=== PATIENT | female | born 1970 | race Caucasian/White ===

== ENCOUNTER 2017-10-16 22:34 | Inpatient (IN) | payer OTHER ==
[~2017-10-16] VITALS: Ht 165.1 cm; Wt 80.5 kg
[~2017-10-16 22:34] MED LIST: DIPROSONE 0.05%15 GM TP; HYDROCHLOROTHIA25 MG PO; RISPERDAL3 MG PO
[2017-10-17 13:41] VITALS: BP 135/77
[2017-10-17 19:13] LABS: HEMATOCRIT 36.6 % (36.0-46.0); MCV 86.5 FL (83-99)
[2017-10-17 21:42] VITALS: BP 109/56
[2017-10-17 22:42] LABS: HEMATOCRIT 31.7 % (36.0-46.0); HEMOGLOBIN 10.6 G/DL (11.9-15.5); MCH 28.4 PG (29.0-34.0); MCHC 33.4 G/DL (30.0-36.0); RBC DIS.WIDTH-CV 14.6 % (11.8-14.6); RBC DIS.WIDTH-SD 45.3 % (39-53); RED BLOOD COUNT 3.73 M/uL (3.80-5.20); WHITE BLOOD COUNT 11.1 K/uL (4.1-10.2)
[2017-10-17 22:53] LABS: CHLORIDE 105 mEq/L (99-109); SODIUM 136 mEq/L (136-147)
[2017-10-17 22:55] LABS: GLUCOSE 187 mg/dL (70-99)
[2017-10-17 22:59] LABS: CREATININE 0.7 mg/dL (0.6-1.3); GFR ESTIMATE (CALCULATED) > 59 mL/min/
[2017-10-17 23:00] LABS: UREA NITROGEN (BUN) 11 mg/dL (9-23)
[2017-10-18 00:07] LABS: PLAT.SUFFICIENCY ADEQUATE; PLATELET CLUMPS PRESENT - PLATELET COUNT APPEARS ADQ.; PLATELET COUNT 277 K/uL (156-360)
[2017-10-18 00:12] VITALS: BP 111/68
[2017-10-18 03:31] VITALS: BP 108/65
[2017-10-18 05:43] LABS: HEMATOCRIT 29.9 % (36.0-46.0); HEMOGLOBIN 9.7 G/DL (11.9-15.5); MCH 27.7 PG (29.0-34.0); MCHC 32.4 G/DL (30.0-36.0); MCV 85.4 FL (83-99); PLATELET COUNT 292 K/uL (156-360); RBC DIS.WIDTH-CV 15.1 % (11.8-14.6); RBC DIS.WIDTH-SD 46.5 % (39-53); WHITE BLOOD COUNT 8.1 K/uL (4.1-10.2)
[2017-10-18 06:08] LABS: CHLORIDE 104 MEQ/L (99-109); CREATININE 0.7 MG/DL (0.6-1.3); GFR ESTIMATE (CALCULATED) > 59 mL/min/; GLUCOSE 227 mg/dL (70-99); POTASSIUM 4.1 MEQ/L (3.7-5.4); SODIUM 137 MEQ/L (136-147); UREA NITROGEN (BUN) 12 mg/dL (9-23)
[2017-10-18 07:38] VITALS: BP 106/55
[2017-10-18 11:29] VITALS: BP 100/54
[2017-10-18 15:42] VITALS: BP 100/56
[2017-10-18 19:56] VITALS: BP 99/55
[2017-10-19] VITALS (14 sets, daily range): BP systolic 103–125; BP diastolic 51–65
[2017-10-19 05:33] LABS: HEMATOCRIT 24.5 % (36.0-46.0); HEMOGLOBIN 7.9 G/DL (11.9-15.5); MCH 27.8 PG (29.0-34.0); MCHC 32.2 G/DL (30.0-36.0); MCV 86.3 FL (83-99); PLATELET COUNT 223 K/uL (156-360); RBC DIS.WIDTH-CV 15.3 % (11.8-14.6); RED BLOOD COUNT 2.84 M/uL (3.80-5.20); WHITE BLOOD COUNT 9.6 K/uL (4.1-10.2)
[2017-10-19 06:12] LABS: CHLORIDE 104 MEQ/L (99-109); CREATININE 0.7 MG/DL (0.6-1.3); GFR ESTIMATE (CALCULATED) > 59 mL/min/; GLUCOSE 141 mg/dL (70-99); POTASSIUM 3.5 MEQ/L (3.7-5.4); SODIUM 135 MEQ/L (136-147); UREA NITROGEN (BUN) 9 mg/dL (9-23)
[2017-10-20 00:17] VITALS: BP 105/57
[2017-10-20 04:10] VITALS: BP 110/56
[2017-10-20 06:22] LABS: HEMATOCRIT 28.1 % (36.0-46.0); HEMOGLOBIN 9.4 G/DL (11.9-15.5); MCH 28.5 PG (29.0-34.0); MCHC 33.5 G/DL (30.0-36.0); MCV 85.2 FL (83-99); PLATELET COUNT 234 K/uL (156-360); RBC DIS.WIDTH-CV 15.7 % (11.8-14.6)
[2017-10-20 06:58] LABS: CHLORIDE 105 MEQ/L (99-109); CREATININE 0.7 MG/DL (0.6-1.3); GFR ESTIMATE (CALCULATED) > 59 mL/min/; GLUCOSE 109 mg/dL (70-99); POTASSIUM 3.7 MEQ/L (3.7-5.4); SODIUM 139 MEQ/L (136-147); UREA NITROGEN (BUN) 6 mg/dL (9-23)
[2017-10-20 07:50] VITALS: BP 110/56
[2017-10-20 16:39] VITALS: BP 122/60
[2017-10-20 23:32] VITALS: BP 133/74
[2017-10-21 06:37] LABS: HEMATOCRIT 28.4 % (36.0-46.0); HEMOGLOBIN 9.3 G/DL (11.9-15.5); MCH 28.2 PG (29.0-34.0); MCHC 32.7 G/DL (30.0-36.0); MCV 86.1 FL (83-99); PLATELET COUNT 247 K/uL (156-360); RBC DIS.WIDTH-CV 15.8 % (11.8-14.6); RBC DIS.WIDTH-SD 49.8 % (39-53); WHITE BLOOD COUNT 10.8 K/uL (4.1-10.2)
[2017-10-21 07:00] VITALS: BP 114/59
[2017-10-21 07:05] LABS: CHLORIDE 107 MEQ/L (99-109); GFR ESTIMATE (CALCULATED) 51 mL/min/; GLUCOSE 114 mg/dL (70-99); POTASSIUM 3.6 MEQ/L (3.7-5.4); SODIUM 142 MEQ/L (136-147); UREA NITROGEN (BUN) 10 mg/dL (9-23)
[2017-10-21 07:25] LABS: CREATININE 1.2 MG/DL (0.6-1.3)
[2017-10-21 11:09] VITALS: BP 120/59
[2017-10-21 15:01] VITALS: BP 11/62; BP 111/62
[2017-10-21 19:05] VITALS: BP 116/63
[2017-10-21 23:30] VITALS: BP 117/82
[2017-10-22 06:01] LABS: HEMATOCRIT 28.7 % (36.0-46.0); HEMOGLOBIN 9.2 G/DL (11.9-15.5); MCH 27.9 PG (29.0-34.0); MCHC 32.1 G/DL (30.0-36.0); PLATELET COUNT 306 K/uL (156-360); RBC DIS.WIDTH-CV 15.7 % (11.8-14.6); RBC DIS.WIDTH-SD 49.4 % (39-53); WHITE BLOOD COUNT 7.9 K/uL (4.1-10.2)
[2017-10-22 06:39] LABS: CHLORIDE 106 MEQ/L (99-109); GLUCOSE 97 mg/dL (70-99); SODIUM 139 MEQ/L (136-147); UREA NITROGEN (BUN) 10 mg/dL (9-23)
[2017-10-22 06:40] LABS: CREATININE 0.7 MG/DL (0.6-1.3); GFR ESTIMATE (CALCULATED) > 59 mL/min/; POTASSIUM 4.4 MEQ/L (3.7-5.4)
[2017-10-22 07:10] VITALS: BP 106/64
[2017-10-22 15:20] VITALS: BP 116/57
[2017-10-23 00:24] VITALS: BP 123/56
[2017-10-23 06:34] LABS: HEMATOCRIT 28.2 % (36.0-46.0); HEMOGLOBIN 8.9 G/DL (11.9-15.5); MCH 27.9 PG (29.0-34.0); MCHC 31.6 G/DL (30.0-36.0); MCV 88.4 FL (83-99); PLATELET COUNT 336 K/uL (156-360); RBC DIS.WIDTH-CV 15.5 % (11.8-14.6); RBC DIS.WIDTH-SD 50.4 % (39-53); RED BLOOD COUNT 3.19 M/uL (3.80-5.20)
[2017-10-23 07:01] LABS: CHLORIDE 107 MEQ/L (99-109); CREATININE 0.7 MG/DL (0.6-1.3); GFR ESTIMATE (CALCULATED) > 59 mL/min/; GLUCOSE 85 mg/dL (70-99); POTASSIUM 4.7 MEQ/L (3.7-5.4); SODIUM 141 MEQ/L (136-147); UREA NITROGEN (BUN) 10 mg/dL (9-23)
[2017-10-23 07:50] VITALS: BP 117/62
[2017-10-23 11:23] LABS: CREATININE 0.6 MG/DL (0.6-1.3); GFR ESTIMATE (CALCULATED) > 59 mL/min/
[2017-10-23 15:18] VITALS: BP 115/59
[2017-10-23 23:46] VITALS: BP 117/59
[2017-10-24 03:35] VITALS: BP 113/59
[2017-10-24 07:39] VITALS: BP 114/60
[2017-10-24 16:11] VITALS: BP 112/64
[2017-10-24 23:27] VITALS: BP 119/58
[2017-10-25 06:04] LABS: HEMATOCRIT 28.3 % (36.0-46.0); HEMOGLOBIN 8.6 G/DL (11.9-15.5); MCHC 30.4 G/DL (30.0-36.0); MCV 88.7 FL (83-99); PLATELET COUNT 375 K/uL (156-360); RBC DIS.WIDTH-CV 15.2 % (11.8-14.6); RBC DIS.WIDTH-SD 49.6 % (39-53); RED BLOOD COUNT 3.19 M/uL (3.80-5.20)
[2017-10-25 06:25] LABS: CHLORIDE 109 MEQ/L (99-109); CREATININE 0.7 MG/DL (0.6-1.3); GFR ESTIMATE (CALCULATED) > 59 mL/min/; GLUCOSE 93 mg/dL (70-99); POTASSIUM 4.5 MEQ/L (3.7-5.4); SODIUM 143 MEQ/L (136-147); UREA NITROGEN (BUN) 6 mg/dL (9-23)
[2017-10-25 07:30] VITALS: BP 106/55
[2017-10-25 14:38] VITALS: BP 103/55
[2017-10-25 19:30] VITALS: BP 100/58
[2017-10-26 00:01] VITALS: BP 105/55
[2017-10-26 05:42] LABS: HEMATOCRIT 29.6 % (36.0-46.0); HEMOGLOBIN 9.2 G/DL (11.9-15.5); MCH 27.5 PG (29.0-34.0); MCHC 31.1 G/DL (30.0-36.0); MCV 88.6 FL (83-99); PLATELET COUNT 420 K/uL (156-360); RBC DIS.WIDTH-CV 15.1 % (11.8-14.6); RBC DIS.WIDTH-SD 48.8 % (39-53); RED BLOOD COUNT 3.34 M/uL (3.80-5.20); WHITE BLOOD COUNT 7.3 K/uL (4.1-10.2)
[2017-10-26 06:19] LABS: CHLORIDE 107 MEQ/L (99-109); CREATININE 0.7 MG/DL (0.6-1.3); GFR ESTIMATE (CALCULATED) > 59 mL/min/; GLUCOSE 98 mg/dL (70-99); POTASSIUM 4.2 MEQ/L (3.7-5.4); SODIUM 142 MEQ/L (136-147); UREA NITROGEN (BUN) 9 mg/dL (9-23)
[2017-10-26 07:10] VITALS: BP 108/61
== END 2017-10-26 10:10 | disposition home or self-care (01) | DRG 737 ==
LOC: ENRESERV 22:34 → 2SOUTH 10-17 12:21 → 2EAST 10-17 12:30 → 2SOUTH 10-17 12:30 → ENRESERV 10-17 13:48 → 2SOUTH 10-17 14:53 → ENRESERV 10-17 19:09 → 2EAST 10-17 21:33
PROVIDERS: Nurse Practitioner Acute Care; Obstetrics & Gynecology Gynecologic Oncology; Physician Assistant
PROC: 0UT90ZZ Resection of Uterus, Open Approach (ICD-10-PCS; principal; 2017-10-17)
PROC: 0UT70ZZ Resection of Bilateral Fallopian Tubes, Open Approach (ICD-10-PCS; principal; 2017-10-17)
PROC: 0UT20ZZ Resection of Bilateral Ovaries, Open Approach (ICD-10-PCS; principal; 2017-10-17)
PROC: 0T778DZ Dilation of Left Ureter with Intraluminal Device, Via Natural or Artificial Opening Endoscopic (ICD-10-PCS; principal; 2017-10-17)
PROC: 0DBP0ZZ Excision of Rectum, Open Approach (ICD-10-PCS; 2017-10-17)
PROC: 0DBN0ZZ Excision of Sigmoid Colon, Open Approach (ICD-10-PCS; 2017-10-17)
DX: C56.1 Malignant neoplasm of right ovary (principal); I10 Essential (primary) hypertension; E03.9 Hypothyroidism, unspecified; K56.7 Ileus, unspecified; N13.5 Crossing vessel and stricture of ureter without hydronephrosis; N99.71 Accidental puncture and laceration of a genitourinary system organ or structure during a genitourinary system procedure; F20.9 Schizophrenia, unspecified
CPT/HCPCS: 36415; 74019; 80048; 82565; 85014; 85018; 85027; 86850; 86900; 86901; 86920; 88108; 88305; 88309; C1758; C2625; J0131; J0690; J1100; J1170; J1650; J1885; J2250; J2405; J2710; J2765; J3010; J3480; J7120; J7643; P9016